=== PATIENT | male | born 1950 | race Caucasian/White ===

== ENCOUNTER 2021-11-27 13:40 | Day surgery (SDC) | payer MEDICARE, OTHER ==
[2021-11-27] MEDS ORDERED: Marcaine Mpf 0.5% Vial 30 Ml IJ ONE (13:41)
[2021-11-27] MEDS ORDERED: DIPRIVAN 200 MG/20 ML IV ONE (15:03)
[2021-11-27] MEDS ORDERED: Lactated Ringers 1,000 ML IV ONE (15:59)
--- NOTE | 2021-11-28 18:32 | XRAY ---
10 seconds of fluoroscopy was used in surgery for a right genicular nerve block.
--- NOTE | 2021-11-29 21:32 | XRAY ---
Indication: Right genicular nerve block. Intraoperative fluoroscopy provided for 10 seconds. AP and lateral digital spot images submitted for interpetation demonstrate a needle tip projected over the medial margin of the proximal right tibia and a needle tip projected over both the medial and lateral margins of the supracondylar portion of the distal right femur. Correlate with intraoperative findings/report.
== END 2021-11-27 15:23 | disposition home or self-care (01) ==
LOC: SDC-PAIN 13:40
PROVIDERS: ATTEND Psychiatry & Neurology Pain Medicine
DX: M17.11 Unilateral primary osteoarthritis, right knee (principal); Z79.899 Other long term (current) drug therapy
CPT/HCPCS: 64454; 73560; 77002; J2704

== ENCOUNTER 2021-12-25 14:13 | Day surgery (SDC) | payer MEDICARE, OTHER ==
[2021-12-25] MEDS ORDERED: XYLOCAINE-MPF 1% 5ML SDV IJ ONE (14:14)
[2021-12-25] MEDS ORDERED: Depo-Medrol 40 MG/ML IM ONE (14:14)
[2021-12-25] MEDS ORDERED: Marcaine Mpf 0.5% Vial 30 Ml IJ ONE (14:14)
[2021-12-25] MEDS ORDERED: DIPRIVAN 200 MG/20 ML IV ONE (16:17)
[2021-12-25] MEDS ORDERED: Lactated Ringers 1,000 ML IV ONE (16:43)
--- NOTE | 2021-12-25 20:18 | XRAY ---
Indication: Right knee genicular RFA. Intraoperative fluoroscopy provided for 17 seconds. 2 digital spot images of the right knee submitted for interpretation demonstrates anterior needle tips projecting medial/lateral supracondylar and medial tibial plateau. Correlate with intraoperative findings/report.
--- NOTE | 2021-12-26 09:44 | XRAY ---
17 seconds of fluoroscopy was used in surgery for a right knee genicular RFA.
== END 2021-12-25 16:43 | disposition home or self-care (01) ==
LOC: SDC-PAIN 14:13
PROVIDERS: ATTEND Psychiatry & Neurology Pain Medicine
DX: M17.11 Unilateral primary osteoarthritis, right knee (principal); Z79.899 Other long term (current) drug therapy
CPT/HCPCS: 64624; 73560; 77002; J1030; J2704

== ENCOUNTER 2022-06-25 08:30 | Day surgery (SDC) | payer MEDICARE, OTHER ==
[2022-06-25] MEDS ORDERED: Depo-Medrol 40 MG/ML IM ONE (08:31)
[2022-06-25] MEDS ORDERED: LIDOCAINE HCL 1% 50 MG/5 ML VL PF IJ ONE (08:31)
[2022-06-25] MEDS ORDERED: BUPIVACAINE 0.5% VIAL IJ ONE (08:31)
--- NOTE | 2022-06-25 11:20 | XRAY ---
Indication: Right knee genicular nerve block. Intraoperative fluoroscopy provided for 20 seconds. 3 digital spot images right knee submitted for interpretation demonstrates anterior needle tips projecting medial/lateral supracondylar and medial tibial plateau. Correlate with intraoperative findings/report.
--- NOTE | 2022-06-25 11:21 | XRAY ---
20 seconds fluoroscopy time in surgery for genicular nerve block of the right knee.
[2022-06-25] MEDS ORDERED: Lactated Ringers 1,000 ML IV ONE (13:30)
== END 2022-06-25 10:02 | disposition home or self-care (01) ==
LOC: SDC-PAIN 08:30
PROVIDERS: ATTEND Psychiatry & Neurology Pain Medicine
DX: M17.11 Unilateral primary osteoarthritis, right knee (principal); Z79.899 Other long term (current) drug therapy
CPT/HCPCS: 64624; 73560; 77002; J1030; J2001

== ENCOUNTER 2024-02-11 07:50 | Day surgery (SDC) | payer MEDICARE, OTHER ==
[2024-02-11] MEDS ORDERED: Depo-Medrol 40 MG/ML IM ONE (07:51)
[2024-02-11] MEDS ORDERED: LIDOCAINE HCL 1% 50 MG/5 ML VL PF IJ ONE (07:51)
[2024-02-11] MEDS ORDERED: BUPIVACAINE 0.5% VIAL IJ ONE (07:51)
[2024-02-11] MEDS ORDERED: DIPRIVAN 200 MG/20 ML IV ONE (09:21)
[2024-02-11] MEDS ORDERED: Lactated Ringers 1,000 ML IV ONE (10:06)
--- NOTE | 2024-02-11 11:44 | XRAY ---
Indication: Right knee genicular nerve ablation Intraoperative fluoroscopy provided for 31 seconds. 3 digital spot image submitted for interpretation demonstrates anterior needle tips projecting medial/lateral supracondylar and medial tibial plateau. Correlate with intraoperative findings/report.
--- NOTE | 2024-02-11 11:45 | XRAY ---
Indication: Left knee injection. Intraoperative fluoroscopy provided for 5 seconds. Single digital spot image submitted for interpretation demonstrates needle tip projecting over left femur intercondylar notch. Small amount of contrast injected for needle placement. Correlate with intraoperative findings/report.
--- NOTE | 2024-02-11 12:22 | XRAY ---
5 seconds of fluoroscopy was used in surgery for a left intra-articular knee injection.
--- NOTE | 2024-02-11 12:23 | XRAY ---
31 seconds of fluoroscopy was used in surgery for a right genicular nerve ablation.
== END 2024-02-11 10:02 | disposition home or self-care (01) ==
LOC: SDC-PAIN 07:50
PROVIDERS: ATTEND Psychiatry & Neurology Pain Medicine
DX: M17.0 Bilateral primary osteoarthritis of knee (principal)
CPT/HCPCS: 20610; 64624; 73560; 77002; J2001; J2704; Q9966

== ENCOUNTER 2024-08-11 13:29 | Day surgery (SDC) | payer MEDICARE, OTHER ==
[2024-08-11] MEDS ORDERED: BUPIVACAINE 0.5% VIAL IJ ONE (13:30)
[2024-08-11] MEDS ORDERED: propofoL IV ONE (15:30)
--- NOTE | 2024-08-11 16:40 | XRAY ---
12 seconds of fluoroscopy was used in surgery for a left genicular nerve block.
--- NOTE | 2024-08-11 16:41 | XRAY ---
Indication: Left knee genicular nerve block. Intraoperative fluoroscopy provided for 12 seconds. 2 digital spot images left knee submitted for interpretation demonstrates anterior needle tips projecting medial/lateral supracondylar and medial tibial plateau. Correlate with intraoperative findings/report.
== END 2024-08-11 15:50 | disposition home or self-care (01) ==
LOC: SDC-PAIN 13:29
PROVIDERS: ATTEND Psychiatry & Neurology Pain Medicine
DX: M17.0 Bilateral primary osteoarthritis of knee (principal)
CPT/HCPCS: 64454; 73560; 77002; J2704

== ENCOUNTER 2024-08-24 13:34 | Day surgery (SDC) | payer MEDICARE, OTHER ==
[2024-08-24] MEDS ORDERED: BUPIVACAINE 0.5% VIAL IJ ONE (13:35)
[2024-08-24] MEDS ORDERED: LIDOCAINE HCL 1% AMPUL 5 ML IJ ONE (13:35)
[2024-08-24] MEDS ORDERED: Depo-Medrol 40 MG/ML IM ONE (13:35)
[2024-08-24] MEDS ORDERED: Lactated Ringers 500 ML IV ONE (13:37)
[2024-08-24] MEDS ORDERED: propofoL IV ONE (14:56)
--- NOTE | 2024-08-24 17:03 | XRAY ---
Indication: Left knee genicular nerve ablation Intraoperative fluoroscopy provided for 25 seconds. 3 digital spot image submitted for interpretation demonstrates anterior needle tips projecting medial/lateral supracondylar and medial tibial plateau. Correlate with intraoperative findings/report.
--- NOTE | 2024-08-24 17:05 | XRAY ---
25 seconds of fluoroscopy was used in surgery for a left genicular nerve ablation.
== END 2024-08-24 15:36 | disposition home or self-care (01) ==
LOC: SDC-PAIN 13:34
PROVIDERS: ATTEND Psychiatry & Neurology Pain Medicine
DX: M17.12 Unilateral primary osteoarthritis, left knee (principal)
CPT/HCPCS: 64624; 73560; 99100; J2704